=== PATIENT | female | born 1985 | race Caucasian/White ===

== ENCOUNTER → 2018-06-29 13:57 | Outpatient (CLI) | payer BC, SELFPAY ==
[2018-06-29 13:55] VITALS: BMI 36.0
[2018-06-29 14:45] LABS: Absolute Lymphocyte Count 2.35 X10^3/ul (0.83-4.51); Absolute Neutrophil Count 6.6 X10^3/uL (2.0-7.7); Basophil# 0.01 X10^3/uL; Basophil% 0.1 % (0-1); Eosinophil# 0.02 X10^3/uL; Eosinophils% 0.2 % (0-5); Hematocrit 39.9 % (37-47); Lymphocyte # 2.35 X10^3/ul (4.0); Lymphocyte % 25.3 % (19-41); Mean Corp Hgb Conc 32.6 g/gl (32-36); Mean Corpuscular Volume 88.9 fL (81-99); Mean Platelet Vol. 10.6 fl (6.2-12.0); Monocyte% 3.2 % (0-10); Neutrophil # 6.59 X10^3/uL (2.7-7.7); Platelet Count 182 K/mm3 (150-450); RBC Distribution Width CV 12.8 % (11.6-14.6); RBC Distribution Width SD 40.8 fl (35.1-43.9); Red Blood Count 4.49 M/mm3 (4.2-5.4); White Blood Count 9.3 K/mm3 (4.4-11.0)
[2018-06-29 14:49] LABS: POSITIVE COUNT NO; POSITIVE DIFFERENTIAL NO; POSITIVE MORPHOLOGY NO
[2018-06-29 15:00] LABS: Glucose Challenge Gest 1H 50g 101 mg/dL (70-140)
[2018-06-29 15:52] LABS: HIV - WCH Non-Reactive (Nonreactive); Rubella IgG 31.9 IU/mL
[2018-06-29 20:15] LABS: Chlamydia Trachomatis by PCR Negative (Negative); Neisserai gonorrhoeae by PCR Negative (Negative); Probe Check PASS; Sample Adequacy Control PASS; Specimen Processing Control PASS
[2018-07-01 10:46] LABS: HEPATITIS B SURFACE AG Negative (Negative)
[2018-07-02 01:31] LABS: Rapid Plasmin Reagin (RPR) NONREACTIVE (NONREACTIVE)
== END ==
PROVIDERS: Referring Provider Obstetrics & Gynecology; Visit Provider Obstetrics & Gynecology
DX: O09.529 Supervision of elderly multigravida, unspecified trimester (principal); Z3A.00 Weeks of gestation of pregnancy not specified
CPT/HCPCS: 36415; 82950; 85025; 86592; 86703; 86762; 86850; 86900; 87086; 87088; 87340; 87491; 87591

== ENCOUNTER → 2018-07-16 12:56 | Outpatient (CLI) | payer BC, SELFPAY ==
[2018-06-29 13:55] VITALS: BMI 36.0
== END ==
PROVIDERS: Referring Provider Obstetrics & Gynecology; Visit Provider Obstetrics & Gynecology
DX: Z34.81 Encounter for supervision of other normal pregnancy, first trimester (principal)
CPT/HCPCS: 36415

== ENCOUNTER → 2018-11-16 11:39 | Outpatient (CLI) | payer BC, SELFPAY ==
[2018-11-16 11:31] VITALS: BMI 41.1
[2018-11-16 12:44] LABS: Absolute Lymphocyte Count 1.87 X10^3/uL (0.83-4.51); Absolute Neutrophil Count 5.9 X10^3/uL (2.0-7.7); Basophil# 0.02 X10^3/uL; Basophil% 0.2 % (0-1); Eosinophil# 0.03 X10^3/uL; Eosinophils% 0.4 % (0-5); Hematocrit 35.5 % (37-47); Hemoglobin 11.9 g/dL (12.0-15.0); Lymphocyte # 1.87 X10^3/ul (4.0); Lymphocyte % 22.9 % (19-41); Mean Corp Hgb Conc 33.5 g/dL (32-36); Mean Corpuscular Hgb 29.9 pg (27.0-32.0); Mean Corpuscular Volume 89.2 fL (81-99); Mean Platelet Vol. 10.9 fl (6.2-12.0); Monocyte# 0.33 X10^3/uL; NRBC Flagged by Analyzer 0 % (0-5); Neutrophil # 5.88 X10^3/uL (2.7-7.7); Neutrophil % 71.9 % (47-70); Platelet Count 159 K/mm3 (150-450); RBC Distribution Width CV 12.5 % (11.6-14.6); RBC Distribution Width SD 41.1 fl (35.1-43.9); Red Blood Count 3.98 M/mm3 (4.2-5.4); White Blood Count 8.2 K/mm3 (4.4-11.0)
[2018-11-16 12:56] LABS: Glucose Challenge Gest 1H 50g 125 mg/dL (70-140)
== END ==
PROVIDERS: Referring Provider Obstetrics & Gynecology; Visit Provider Obstetrics & Gynecology
DX: Z34.92 Encounter for supervision of normal pregnancy, unspecified, second trimester (principal)
CPT/HCPCS: 36415; 82950; 85025; 86850; 86900

== ENCOUNTER → 2019-01-17 13:15 | Outpatient (CLI) | payer BC, SELFPAY ==
[2019-01-17 11:08] VITALS: BMI 41.1
== END ==
PROVIDERS: Referring Provider Obstetrics & Gynecology; Visit Provider Obstetrics & Gynecology
DX: O09.90 Supervision of high risk pregnancy, unspecified, unspecified trimester (principal); Z3A.00 Weeks of gestation of pregnancy not specified
CPT/HCPCS: 87081

== ENCOUNTER 2019-02-02 18:35 | Inpatient (IN) | payer BC, SELFPAY ==
[2018-12-28 13:36] VITALS: BMI 41.1
[2019-01-31 09:57] VITALS: BMI 41.0
[2019-02-02 19:21] VITALS: BMI 41.2
[2019-02-02] MEDS: Lactated Ringers 1,000 ML 50 ML IV (19:57)
[2019-02-02] MEDS: 0.9% Normal Saline 100 ML IV.SOLN. IY (20:15)
[2019-02-02 20:16] LABS: Absolute Lymphocyte Count 2.85 X10^3/uL (0.83-4.51); Absolute Neutrophil Count 6.7 X10^3/uL (2.0-7.7); Basophil# 0.01 X10^3/uL; Basophil% 0.1 % (0-1); Eosinophil# 0.05 X10^3/uL; Eosinophils% 0.5 % (0-5); Hematocrit 37.9 % (37-47); Hemoglobin 12.6 g/dL (12.0-15.0); Lymphocyte # 2.85 X10^3/ul (4.0); Lymphocyte % 27.5 % (19-41); Mean Corp Hgb Conc 33.2 g/dL (32-36); Mean Corpuscular Hgb 29.6 pg (27.0-32.0); Mean Corpuscular Volume 89.2 fL (81-99); Mean Platelet Vol. 11.7 fl (6.2-12.0); Monocyte# 0.72 X10^3/uL; Monocyte% 6.9 % (0-10); NRBC Flagged by Analyzer 0 % (0-5); Neutrophil # 6.71 X10^3/uL (2.7-7.7); Neutrophil % 64.6 % (47-70); Platelet Count 144 K/mm3 (150-450); RBC Distribution Width SD 42.5 fl (35.1-43.9); Red Blood Count 4.25 M/mm3 (4.2-5.4); White Blood Count 10.4 K/mm3 (4.4-11.0)
[2019-02-02] MEDS: Oxytocin 30 units/NS 500 ml 30 UNITS/500 ML IV.SOLN IV (20:25)
[2019-02-02] MEDS: Lactated Ringers 500 ML 999 ML IV (22:16)
[2019-02-02] MEDS: fentaNYL-bupivacaine (epidural) 100 ML BAG EPIDURAL (23:25)
[2019-02-03] MEDS: Lactated Ringers 1,000 ML 200 ML IV ×2 (02:15→04:40)
[2019-02-03] MEDS: fentaNYL-bupivacaine (epidural) 100 ML BAG EPIDURAL (03:51)
--- NOTE | 2019-02-03 06:09 | HP.PCM_ITS ---
- Problem List (1) Encounter for induction of labor Status: Acute (2) Advanced maternal age (AMA) in Status: Acute Comment: genetic screening discussed, plan 36 weeks growth us. (3) Obesity affecting Status: Acute Qualifiers: Comment: 1 tm gct, encouraged healthy weight gain (4) Status: Acute Qualifiers: Comment: Romy low risk, declined carrier and ntd screening. anatomy us normal. (5) Rh negative status during Status: Acute Qualifiers: Comment: rhogam given at 28 weeks and PRN (6) Supervision of high-risk Status: Acute Qualifiers: Comment: PRR YAMILET 02/08/19 [facility] Chris, Calvin, Gutiérrez Nelson, farida History and Physical Date of Admission: 02/03/19 Intake Vital Signs 01/31/19 Body Mass Index (BMI) 41.0 01/31/19 Height 5 ft 8 in 01/31/19 Weight: 270 lb 01/31/19 Body Mass Index (BMI) 41.0 01/31/19 Blood Pressure 130/84 H 12/14/18 Body Mass Index (BMI) 41.1 Intake Visit Reasons: 39 WK OB Chief Complaint: est ob Paraoptometric Required: No Is patient in pain?: No Allergies No Known Allergies Allergy (Verified 01/31/19 09:54) Medications vitamin#30 30 mg iron-10 mg iron-folic acid 1 mg-omg3 capsule cap PO cap 06/29/18 history Confirmed 01/31/19 Last Menstral Period: 05/04/18 Zika: Zika virus screening: Negative : No PFSH PFSH Surgical History History of cholecystectomy (Acute) Status post eye surgery (Acute) Family History Father Diabetes Grandfather Diabetes Social History (Updated 01/31/19 @ 10:12 by Ivonne Lala MD) Smoking Status: Never smoker alcohol intake: never substance use type: does not use caffeine: Yes what type of physical activity do you participate in: walking seatbelt use: always do you feel safe at home: Yes 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 Date Name GA/Weeks Outcome Route Bth Weight Infant Gen Labor Lgth Anesthesia Del Locatn Provider FOB Unknown 2007 Kenan 38 live - full term 7lb3 Fema le epidural Ralph Unknown 2009 Nita 39 live - full term 8 lbs 13 ounces Female epidural Ralph Unknown 2014 Brock 38 live - full term 8 lbs 14 ounces Male epidural Ralph HPI 39 WK OB: Details: JEREMIAH KING is a 33 year old who presents for IOL secondary to AMA. she has a history of a healthy and has not had any complications. OB Visit YAMILET Calculator Estimated Delivery Date Method Current WG Current Estimate 02/08/19 LMP (Certain) Expected Delivery Route/Plan Labor Preferences- labor support person: Nelson pain management: epidural cut cord/dad catch: maybe : yes PP control planned: vasectomy discussed possible routes of delivery and associated risks: special requests: Specific Issue/Plans flu vaccine: declines tdap vaccine: declines rhogam: given 11/16/18 LARC form signed: declines Problem list reviewed and updated with the most current plan of care details and appropriate orders placed. Relevant counseling for the gestational age provided. Continue routine care and follow up unless otherwise noted in visit notes/problem list details Initial Weight: 236 lb Date EGA Weight BP Urine Prot Glucose FHR FuHt Pres Mov CTX Dilation Effaced St Visit Note 07/30/18 12w 3d 236 lb (+0 oz) Negative Negative 150 no vb cramping 08/27/18 16w 3d 240 lb (+4 lb) 240 lb (+4 lb) 112/66 Negative Negative 158 NO VB, LOF. 09/24/18 20w 3d 247 lb 2 oz (+11 lb 2 oz) 112/86 Negative Negative 150 no vb cramping some fm 10/19/18 24w 0d 253 lb 4 oz (+17 lb 4 oz) 96/70 Negative Negative 150 no vb lof good fm no regular ctc 11/16/18 28w 0d 258 lb (+22 lb) 110/68 Negative Negative 145 28 no vb lof good fm n oreular ctx 12/01/18 30w 1d 263 lb (+27 lb) 122/64 Negative Negative 140 30 Active absent no vb lof good fm n oregualr ctx 12/14/18 32w 0d 262 lb (+26 lb) 134/82 Negative Negative 152 32 Active absent Doing well. No VB, LOF. Good FM 12/28/18 34w 0d 265 lb 2 oz (+29 lb 2 oz) 138/78 Negative Negative 156 34 Active absent NO cTX, LOF, VB. Good FM. 01/10/19 35w 6d 267 lb 6 oz (+31 lb 6 oz) 130/78 Negative Negative 145 37 Active absent NO CTX, LOF, VB. Had growth US with MFM today 01/17/19 36w 6d 266 lb 4 oz (+30 lb 4 oz) 136/86 Negative Negative 135 38 Cephalic Active absent 1 no vb lof discussed IOL 39 weeks LGA AMA 01/24/19 37w 6d 270 lb (+34 lb) 135 39 Cephalic plan IOL 39 weeks. 01/31/19 38w 6d 270 lb (+34 lb) 130/84 130 Cephalic 1.5 50 plan IOL thunesday pit and you bul b Visit Notes Visit Date: 01/31/19 ??plan IOL thunesday pit and you bulb ??Ivonne Lala MD on 01/31/19 Visit Date: 01/24/19 ??plan IOL 39 weeks. ??Ivonne Lala MD on 01/24/19 Visit Date: 01/17/19 ??no vb lof discussed IOL 39 weeks LGA AMA ??Ivonne Lala MD on 01/17/19 Visit Date: 01/10/19 ??NO CTX, LOF, VB. Had growth US with MFM today ??NIDA Nathan on 01/10/19 Visit Date: 12/28/18 ??NO cTX, LOF, VB. Good FM. ??NIDA Nathan on 12/28/18 Visit Date: 12/14/18 ??Doing well. No VB, LOF. Good FM ??NIDA Nathan on 12/14/18 Visit Date: 12/01/18 ??no vb lof good fm n oregualr ctx ??Ivonne Lala MD on 12/01/18 Visit Date: 11/16/18 ??no vb lof good fm n oreular ctx ??Ivonne Lala MD on 11/16/18 Visit Date: 10/19/18 ??no vb lof good fm no regular ctc ??Ivonne Lala MD on 10/19/18 Visit Date: 09/24/18 ??no vb cramping some fm ??Ivonne Lala MD on 09/24/18 Visit Date: 08/27/18 ??NO VB, LOF. ??Vicki Washington NP-Angela on 08/27/18 Visit Date: 07/30/18 ??no vb cramping ??Ivonne Lala MD on 07/30/18 ROS: General: negative Trade Show Specialist: see hpi GI: otherwise negative unless documented in hpi all others reviewed and negative PE: VSSAF General: alert oriented comfortable HEENT: no thyromegaly, lymphadenopathy CV: RRR Resp: nl inspiratory effort Abdn: soft gravid NTTP approrpriate GA Ext: minimal edema ACOG First Trimester First Trimester: Desire for , Alcohol, Tobacco Cessation, Illicit/Recreational Drug/Substance Use, Intimate Partner Violence, Barriers to care, Unstable Housing, Communication Barriers, Environmental/Work Hazards, Anticipated Course of Care, Toxoplasmosis Precations, Use of Any medications, Sexual activity, Exercise, Dental Care, Sauna/Hot tub use, Seat Belt use, Childbirth classes/Hospital facilities, , Travel, Indications for US and Screening for Aneuploidy Diagnostics Diagnostics Diagnostics Blood Type O NEGATIVE 11/16/18 Antibody Screen NEGATIVE 11/16/18 Glucose 1 Hr 50 gm 125 mg/dL (70-140) 11/16/18 Hgb 11.9 g/dL (12.0-15.0) L 11/16/18 Hct 35.5 % (37-47) L 11/16/18 Details: HIV: Urine Culture: Sequential Screen: NIPT Screen: Assessment & Plan Problems 1. Rh negative status during in third trimester O26.893 2. Obesity affecting in third trimester O99.213 3. Advanced maternal age (AMA) in 4. 38 weeks gestation of Z3A.38 5. Supervision of high risk in third trimester O09.93 Patient presents IOL, plan management for , pitocin/AROM. Pain management: Plans epidural. GBS negative. Management of any complications: None I have reviewed the [facility] and made any clinically relevant updates. Orders Orders: POC Urinalysis 2 Dip (Clinic) Today Coding Level of Care Code OB Routine Diagnoses Rh negative status during in third trimester O26.893 ??Trimester: third trimester Obesity affecting in third trimester O99.213 ??Trimester: third trimester Advanced maternal age (AMA) in 38 weeks gestation of Z3A.38 ??Weeks of gestation: 38 weeks Supervision of high risk in third trimester O09.93 ??Trimester: third trimester
--- NOTE | 2019-02-03 06:44 | PCM.OPRPT ---
Problem List (1) Encounter for induction of labor Status: Acute (2) Advanced maternal age (AMA) in Status: Acute Comment: genetic screening discussed, plan 36 weeks growth us. (3) Obesity affecting Status: Acute Qualifiers: Comment: 1 tm gct, encouraged healthy weight gain (4) Status: Acute Qualifiers: Comment: Romy low risk, declined carrier and ntd screening. anatomy us normal. (5) Rh negative status during Status: Acute Qualifiers: Comment: rhogam given at 28 weeks and PRN (6) Supervision of high-risk Status: Acute Qualifiers: Comment: PRR YAMILET 02/08/19 [facility] Chris, Calvin, Gutiérrez Nelson, boy Vaginal Delivery Maternal Presentation: Medically Indicated Induction iol ama Method of Induction: Pitocin, [place] Bulb Amniotic Membrane Rupture Type: Spontaneous Amniotic Fluid Description: Clear Final YAMILET: 02/07/19 Gestational age: 39 Weeks and 3 Days Date of Procedure: 02/03/19 Pre-Operative Diagnosis: iol ama Post-Operative Diagnosis: same Surgery/ Procedure Performed: Spontaneous Vaginal Delivery Type of Anesthesia: Epidural Multi Select Codes - Urinary/Genital Urinary/Genital CPT Codes: 93530 Vaginal Delivery [facility]
[2019-02-03] MEDS: Oxytocin 30 units/NS 500 ml 30 UNITS/500 ML IV.SOLN 334 UNITS IV (07:40)
[2019-02-03] MEDS: 0.9% Saline Lock 10 ML Syringe IV (10:10)
[2019-02-03 12:52] VITALS: BP 133/72; PULSE 83; RESP 14; TEMP 36.6
[2019-02-03 15:12] VITALS: BP 133/84; PULSE 68; RESP 18; TEMP 36.7
[2019-02-03] MEDS: Naproxen 250 MG Tablet 500 MG PO (18:24)
[2019-02-03] MEDS: Senna/Docusate Sodium 1 Tablet PO (18:25)
[2019-02-03 19:54] VITALS: BP 119/70; PULSE 65; RESP 18; TEMP 36.7
[2019-02-03] MEDS: Acetaminophen 500 MG Tablet 1000 MG PO (22:27)
[2019-02-04 01:02] VITALS: BP 110/54; PULSE 63; RESP 16; TEMP 36.1; O2SAT 97
--- NOTE | 2019-02-04 02:50 | DCINST_ITS ---
Discharge Diet: No Restrictions Discharge Activity: Return to Normal Activity, May not drive while taking narcotic pain medications., May Shower May resume sexual activity in: 4-6 weeks Call your doctor if your incision/area has: Continuous Slow Oozing, Sudden Increased Bleeding, Increased Pain/ Swelling, Increased Redness, Foul Smelling Discharge Additional Instructions: If you experience any of the following, contact your healthcare provider. * Bleeding that soaks a pad every hour for 2 hours * Fever 100.4 or higher * Unrelieved incision or abdominal pain * Swelling, redness, discharge or bleeding from your incision or episiotomy site * Your incision begins to separate * Problems urinating (including inability to urinate or burning while urinating). * Visual changes * Severe headache * Flu-like symptoms * Pain or redness in one of both of your breasts * Pain, warmth, tenderness or swelling in your legs, especially the calf area * Frequent nausea and vomiting * Symptoms of depression or anxiety If you experience any of the following, call 911 or go to the nearest Emergency Room. * Chest pain * Problems breathing * Seizure activity * Partial or complete paralysis of a body part, slurred speech, weakness or drooping of the face, or a sudden inability to walk or hold your balance Allergies/Adverse Reactions: Allergies No Known Allergies Allergy (Verified 01/31/19 09:54) Medications to take at Discharge vitamin#30 30 mg iron-10 mg iron-folic acid 1 mg-omg3 capsule cap PO cap 06/29/18 Please Follow Up With: Ivonne Lala MD - [phone] When: Call to make an appointment with your doctor in 6 weeks. If you had elevated Blood pressure or 4th degree laceration you will need to be seen in 2 weeks. Primary Care Physician: JAROD AGUDELO [Other] Test Results: Test results from this visit will be discussed in further detail at your follow- up appointment, if applicable.
--- NOTE | 2019-02-04 02:50 | PCM.DCVAG ---
Discharge Diet: No Restrictions Discharge Activity: Return to Normal Activity, May not drive while taking narcotic pain medications., May Shower May resume sexual activity in: 4-6 weeks Call your doctor if your incision/area has: Continuous Slow Oozing, Sudden Increased Bleeding, Increased Pain/ Swelling, Increased Redness, Foul Smelling Discharge Additional Instructions: If you experience any of the following, contact your healthcare provider. Bleeding that soaks a pad every hour for 2 hours Fever 100.4 or higher Unrelieved incision or abdominal pain Swelling, redness, discharge or bleeding from your incision or episiotomy site Your incision begins to separate Problems urinating (including inability to urinate or burning while urinating). Visual changes Severe headache Flu-like symptoms Pain or redness in one of both of your breasts Pain, warmth, tenderness or swelling in your legs, especially the calf area Frequent nausea and vomiting Symptoms of depression or anxiety If you experience any of the following, call 911 or go to the nearest Emergency Room. Chest pain Problems breathing Seizure activity Partial or complete paralysis of a body part, slurred speech, weakness or drooping of the face, or a sudden inability to walk or hold your balance Allergies/Adverse Reactions: Allergies No Known Allergies Allergy (Verified 01/31/19 09:54) Medications to take at Discharge vitamin#30 30 mg iron-10 mg iron-folic acid 1 mg-omg3 capsule cap PO cap 06/29/18 Please Follow Up With: Ivonne Lala MD - [phone] When: Call to make an appointment with your doctor in 6 weeks. If you had elevated Blood pressure or 4th degree laceration you will need to be seen in 2 weeks. Primary Care Physician: JAROD AGUDELO [Other] Test Results: Test results from this visit will be discussed in further detail at your follow-up appointment, if applicable.
[2019-02-04 03:58] VITALS: BP 156/79; PULSE 57; RESP 18; TEMP 36.6; O2SAT 98
[2019-02-04 04:02] VITALS: BP 140/77; PULSE 54
--- NOTE | 2019-02-04 04:02 | NURSING ---
Vital signs obtained for 0400 check. BPs elevated, running 156/79 on right arm and 140/77 on left arm. Pt. denies any headache, severe epigastric pain, or vision changes. This RN will continue to monitor.
[2019-02-04] MEDS: Naproxen 250 MG Tablet 500 MG PO (04:10)
[2019-02-04 04:11] VITALS: BP 147/70
--- NOTE | 2019-02-04 08:18 | PCM.PN.OB ---
Patient Problems: Active and Suspected Problems (Last Reviewed 01/31/19 @ 09:54 by Tiffanie Lovell) Encounter for induction of labor (Acute) - Physical Exam General: Alert, Oriented x3 Abdomen: Soft, Non Tender, - - FF below U Vital Signs Temp Pulse Resp BP Pulse Ox 97.9 F 54 L 18 147/70 H 98 02/04/19 03:58 02/04/19 04:02 02/04/19 03:58 02/04/19 04:11 02/04/19 03:58 Oxygen Delivery Method Room Air Weight: 271 lb 6.224 oz Body Mass Index (BMI) 41.2 Intake and Output for Last 24 Hours 02/02/19 02/03/19 02/04/19 23:59 23:59 23:59 Intake Total 709.44 / 709.44 2827.06 / 2827.06 Output Total 775 / 775 Balance 709.44 / 709.44 2052.06 / 2052.06 Laboratory Tests Past 24 Hrs 02/03/19 09:20 Screen NEGATIVE Baby's Blood Type A POSITIVE Baby's GURMEET POSITIVE Medical Necessity - Tobacco Use Smoking Status: Never smoker Assessment/Plan All Active Problems (Last Reviewed 01/31/19 @ 09:54 by Tiffanie Lovell) Encounter for induction of labor (Acute) Rh negative status during (Acute) Obesity affecting (Acute) Advanced maternal age (AMA) in (Acute) (Acute) Supervision of high-risk (Acute) s/p PPD # 1 1. routine post delivery care 2. breast feeding- support given 3. rh negative, rhogam candidate 4. rubella immune 5. plans home today
[2019-02-04 08:30] VITALS: BP 133/67; PULSE 61; RESP 14; TEMP 36.5
[2019-02-04] MEDS: Senna/Docusate Sodium 1 Tablet PO (10:07)
[2019-02-04] MEDS: Acetaminophen 500 MG Tablet 1000 MG PO (10:11)
[2019-02-04 12:30] VITALS: BP 126/77; PULSE 61; RESP 16; TEMP 36.5
== END 2019-02-04 12:40 | disposition home or self-care (01) | DRG 806 ==
PROVIDERS: Admitting Provider Obstetrics & Gynecology; Referring Provider Obstetrics & Gynecology; Visit Provider Obstetrics & Gynecology
DX: O42.913 Preterm premature rupture of membranes, unspecified as to length of time between rupture and onset of labor, third trimester (principal); O36.0130 Maternal care for anti-D [Rh] antibodies, third trimester, not applicable or unspecified; Z37.0 Single live birth; O99.214 Obesity complicating childbirth; E66.9 Obesity, unspecified; Z3A.39 39 weeks gestation of pregnancy
CPT/HCPCS: 59025; 59050; 85025; 85461; 86850; 86900; 86901; 90384; 99218; J7120; A4216; G0378; J2790

== ENCOUNTER → 2019-03-21 14:39 | Outpatient (CLI) | payer BC, SELFPAY ==
[2019-03-21 10:12] VITALS: BMI 41.2
[2019-03-26 13:18] LABS: HPV APTIMA, High Risk Negative (Negative)
== END ==
PROVIDERS: Visit Provider Obstetrics & Gynecology
DX: Z12.4 Encounter for screening for malignant neoplasm of cervix (principal)
CPT/HCPCS: 87624; 88175; G0145